=== PATIENT | female | born 1975 | race Two or more races ===

== ENCOUNTER 2021-09-03 13:10 | Outpatient (CLI) | payer OTHER ==
[~2021-09-03 13:10] MED LIST: KETO10TA2 PO
== END 2021-09-03 13:28 | disposition home or self-care (01) ==
LOC: MAMO-SONO 13:10
DX: N92.5 Other specified irregular menstruation (principal); N60.19 Diffuse cystic mastopathy of unspecified breast; Z12.31 Encounter for screening mammogram for malignant neoplasm of breast

== ENCOUNTER 2023-02-12 08:26 | Outpatient (CLI) | payer OTHER | END 2023-02-12 08:37 | disposition home or self-care (01) | LOC: MAMO-SONO 08:26 | PROVIDERS: ATTEND Obstetrics & Gynecology | DX: Z12.31 Encounter for screening mammogram for malignant neoplasm of breast (principal); N60.19 Diffuse cystic mastopathy of unspecified breast; N92.5 Other specified irregular menstruation ==